=== PATIENT | male | born 1990 | race Caucasian/White ===

== ENCOUNTER 2020-03-17 08:47 | Emergency (ER) | payer OTHER, SELFPAY ==
[2020-03-17 09:55] VITALS: O2SAT 98
[2020-03-17 09:57] VITALS: BP 127/89; TEMP 98
--- NOTE | 2020-03-20 16:50 | EDPHYS ---
Physician Documentation [facility] Name: Bear Pollard Age: 29 yrs Sex: Male : 1990 Arrival Date: 03/17/2020 Time: 08:49 Bed 4 Private MD: ED Physician Marcelo Armstrong HPI: 03/17 09:02 This 29 yrs old Male presents to ER via Ambulatory with complaints of Dog jr8 Bite. 09:02 The patient was bitten on the right hand, by a dog, while approaching the animal, at [facility] home. Onset: The symptoms/episode began/occurred acutely, today. Animal information: The animal was reported to appear healthy. is unknown, The animal is known and can be quarantined, Animal control has been notified. Secondary to the bite the patient reports a laceration, that is deep, 1 cm(s), pain. Associated signs and symptoms: The patient has no apparent associated signs or symptoms. Severity of symptoms: At their worst the symptoms were moderate, in the emergency department the symptoms are unchanged. The patient has not experienced similar symptoms in the past. The patient has not recently seen a physician. Patient has older dog at home. Stated that he was trying to get him away from trash and dog reached out and bit his right hand . Historical: - Allergies: 09:01 No Known Allergies; ss - Immunization history:: Adult Immunizations up to date, Last tetanus immunization: up to date < 5 years ago. - Social history:: Smoking status: Patient denies any tobacco usage or history of. ROS: 09:02 Eyes: Negative for injury, pain, redness, and discharge, ENT: Negative for injury, jr8 pain, and discharge, Neck: Negative for injury, pain, and swelling, Cardiovascular: Negative for chest pain, palpitations, and edema, Respiratory: Negative for shortness of breath, cough, wheezing, and pleuritic chest pain, Abdomen/GI: Negative for abdominal pain, nausea, vomiting, diarrhea, and constipation, Back: Negative for injury and pain, Neuro: Negative for headache, weakness, numbness, tingling, and seizure. 09:02 MS/extremity: Positive for laceration, pain, of the palmar aspect right hand. Exam: 09:02 Constitutional: This is a well developed, well nourished patient who is awake, alert, jr8 and in no acute distress. Cardiovascular: Regular rate and rhythm with a normal S1 and S2. No gallops, murmurs, or rubs. Normal PMI, no JVD. No pulse deficits. Respiratory: Lungs have equal breath sounds bilaterally, clear to auscultation and percussion. No rales, rhonchi or wheezes noted. No increased work of breathing, no retractions or nasal flaring. MS/ Extremity: Pulses equal, no cyanosis. Neurovascular intact. Full, normal range of motion. Neuro: Awake and alert, GCS 15, oriented to person, place, time, and situation. Cranial nerves II-XII grossly intact. Motor strength 5/5 in all extremities. Sensory grossly intact. Cerebellar exam normal. Normal gait. 09:02 Skin: injury, laceration(s), the wound is approximately 1 cm(s), with a depth of 1 cm(s), of the palmar aspect right hand near 2nd metacarpal region , that can be described as no foreign body, linear, with mild bleeding. Vital Signs: 09:00 BP 139 / 96; Pulse 79; Resp 16; Temp 98.0(TE); Pulse Ox 98% on R/A; Pain 2/10; ss 09:43 BP 127 / 89; Pulse 75; Resp 16; Temp 98; Pulse Ox 98% ; bp MDM: 08:56 Patient medically screened. [facility] 09:02 Data reviewed: vital signs, nurses notes, and as a result, I will discharge patient. [facility] Data interpreted: Pulse oximetry: on room air is 98 %. Interpretation: normal. Counseling: I had a detailed discussion with the patient and/or guardian regarding: the historical points, exam findings, and any diagnostic results supporting the discharge/admit diagnosis, the need for outpatient follow up, a hand specialist, to return to the emergency department if symptoms worsen or persist or if there are any questions or concerns that arise at home. ED course: Detailed discussion with patient about why we are not going to close simple laceration and need for f/u with hand surgery along with taking antibiotics due to high risk of infection in this particular region. That if he were to have exudate, swelling, or erythema to region before getting into hand, that he would need to come back immediately for reevaluation. Patient good with this and will follow instructions. 09:08 ED course: Patient up to date on tetanus within 5 years per him . jr8 03/17 09:02 Order name: Wound Care; Complete Time: 09:14 jr8 Administered Medications: No medications were administered Disposition: 03/18 07:53 Co-signature as Attending Physician, Marcelo Armstrong MD I agree with the assessment and [facility] plan of care. Disposition: 03/17/20 09:37 Discharged to Home. Impression: Bitten by dog. - Condition is Stable. - Discharge Instructions: Puncture Wound, Animal Bite. - Prescriptions for Augmentin 875- 125 mg Oral Tablet - take 1 tablet by ORAL route every 12 hours for 10 days; 20 tablet. Ibuprofen 800 mg Oral Tablet - take 1 tablet by ORAL route every 12 hours As needed take with food; 20 tablet. - Medication Reconciliation Form, Thank You Letter, Antibiotic Education, Prescription Opioid Use form. - Follow up: Juan Watts MD; When: 2 - 3 days; Reason: Wound Recheck, Recheck today's complaints, Continuance of care, Re-evaluation by your physician. - Problem is new. - Symptoms have improved. Signatures: Marcelo Armstrong MD MD cha Smirch, Shelby, RN RN Homer Stearns PA PA jr8 Faustino Tamayo, RN RN bp Corrections: (The following items were deleted from the chart) 03/17 09:50 09:37 03/17/2020 09:37 Discharged to Home. Impression: Bitten by dog. Condition is bp Stable. Forms are Medication Reconciliation Form, Thank You Letter, Antibiotic Education, Prescription Opioid Use. Follow up: Juan Watts; When: 2 - 3 days; Reason: Wound Recheck, Recheck today's complaints, Continuance of care, Re-evaluation by your physician. Problem is new. Symptoms have improved. jr8
--- NOTE | 2020-03-20 16:50 | ER ---
Nurse's Notes [facility] Name: Bear Pollard Age: 29 yrs Sex: Male : 1990 Arrival Date: 03/17/2020 Time: 08:49 Bed 4 Private MD: Diagnosis: Bitten by dog Presentation: 03/17 09:00 Chief complaint: Patient states: puncture wound to R hand after getting bit by his dog ss last night. Serosanguinous drainage noted to wound. Coronavirus screen: Proceed with normal triage. Patient denies a cough. Patient denies shortness of breath or difficulty breathing. Patient denies measured and/or subjective temperature greater than 100.4F prior to today's visit. Patient denies travel on a cruise ship or to a country the [facility] currently lists as an affected area. Patient denies contact with known and/or suspected case of COVID-19. Ebola Screen: Patient denies exposure to infectious person. Patient denies travel to an Ebola-affected area in the 21 days before illness onset. Initial Sepsis Screen: Does the patient meet any 2 criteria? No. Patient's initial sepsis screen is negative. Does the patient have a suspected source of infection? No. Patient's initial sepsis screen is negative. Risk Assessment: Do you want to hurt yourself or someone else? Patient reports no desire to harm self or others. Onset of symptoms was March 16, 2020. 09:00 Method Of Arrival: Ambulatory ss 09:00 Acuity: CONCHIS 4 ss Triage Assessment: 09:00 Bite description: bite sustained to right hand by a dog, animal information: bp Appearance: appeared well, vaccination(s) is current. General: Appears in no apparent distress. comfortable, Behavior is calm, cooperative, appropriate for age. Pain: Complains of pain in right hand. EENT: No deficits noted. Neuro: No deficits noted. Cardiovascular: No deficits noted. Respiratory: No deficits noted. GI: No signs and/or symptoms were reported involving the gastrointestinal system. : No signs and/or symptoms were reported regarding the genitourinary system. Derm: No deficits noted. Musculoskeletal: No deficits noted. Injury Description: Bite sustained to right hand caused by a dog, was sustained 6-12 hours ago. Historical: - Allergies: 09:01 No Known Allergies; ss - Immunization history:: Adult Immunizations up to date, Last tetanus immunization: up to date < 5 years ago. - Social history:: Smoking status: Patient denies any tobacco usage or history of. Screenin:05 Abuse screen: Denies threats or abuse. Denies injuries from another. Nutritional bp screening: No deficits noted. Tuberculosis screening: No symptoms or risk factors identified. Fall Risk None identified. Assessment: 09:00 General: SEE TRIAGE NOTE. Derm: Skin is intact, is healthy with good turgor, Skin is bp pink, warm \T\ dry. 09:35 Reassessment: CONTACT WITH [employer] ANIMAL CONTROL. PER ASSOCIATE PROFESSOR OF MEDICINE, NO bp REPORT NEEDED, IT WAS PT'S OWN DOG. 09:43 Reassessment: PT D/C HOME AMBULATORY, DX WITH DOG BITE. bp Vital Signs: 09:00 BP 139 / 96; Pulse 79; Resp 16; Temp 98.0(TE); Pulse Ox 98% on R/A; Pain 2/10; ss 09:43 BP 127 / 89; Pulse 75; Resp 16; Temp 98; Pulse Ox 98% ; bp ED Course: 08:49 Patient arrived in ED. ag5 08:55 Faustino Tamayo, JAMEE is Primary Nurse. bp 08:56 Homer Stearns PA is PHCP. jr8 08:56 Marcelo Armstrong MD is Attending Physician. jr8 09:01 Triage completed. ss 09:01 Arm band placed on right wrist. ss 09:05 Patient has correct armband on for positive identification. Bed in low position. Call bp light in reach. Side rails up X2. 09:14 Wound care: to puncture located on right hand was cleaned with Betadine, irrigated with bp BETADINE. 09:37 Juan Watts MD is Referral Physician. jr8 09:43 No provider procedures requiring assistance completed. Patient did not have IV access bp during this emergency room visit. Administered Medications: No medications were administered Outcome: 09:37 Discharge ordered by . jr8 09:43 Discharged to home ambulatory. bp 09:43 Condition: stable 09:43 Discharge instructions given to patient, Instructed on discharge instructions, follow up and referral plans. medication usage, wound care, Demonstrated understanding of instructions, follow-up care, medications, wound care, Prescriptions given X 2. 09:50 Patient left the ED. bp Signatures: Selam Bueno RN RN ss Homer Stearns PA PA jr8 Faustino Tamayo, RN RN bp Simba Cohen ag5
== END 2020-03-17 09:50 | disposition home or self-care (01) ==
LOC: ER 08:47
DX: S61.411A Laceration without foreign body of right hand, initial encounter (principal); W54.0XXA Bitten by dog, initial encounter; Y93.89 Activity, other specified; Y92.9 Unspecified place or not applicable
CPT/HCPCS: 99283

== ENCOUNTER 2021-06-18 07:37 | Emergency (ER) | payer SELFPAY ==
[2021-06-18] MEDS ORDERED: MOXIFLOXACIN HCL 0.5% 3ML OPTH OPTH ONE (11:45)
[2021-06-18] MEDS ORDERED: TETRACAINE HCL 0.5% 4ML OPTH ONE (11:50)
[2021-06-18] MEDS ORDERED: FLUORESCEIN SODIUM 1 MG/WRAP ONE (11:50)
[2021-06-18] MEDS ORDERED: SMZ./TMP. 800/160 MG TABLET ONE ×2 (11:59→12:29)
--- NOTE | 2021-06-18 12:05 | ER ---
Nurse's Notes [facility] Name: Bear Pollard Age: 31 yrs Sex: Male : 1990 Arrival Date: 06/18/2021 Time: 07:41 Bed 10 Private MD: Diagnosis: Other mucopurulent conjunctivitis, right eye;Injury of conjunctiva and corneal abrasion without foreign body-contact removed, in ED Presentation: 06/18 07:52 Chief complaint: Right eye pain and swelling x 2 days. Contact is still in eye. hb Coronavirus screen: At this time, the client does not indicate any symptoms associated with coronavirus-19. Ebola Screen: No symptoms or risks identified at this time. Risk Assessment: Do you want to hurt yourself or someone else? Patient reports no desire to harm self or others. Onset of symptoms was June 17, 2021. 07:52 Method Of Arrival: Ambulatory hb 07:52 Acuity: CONCHIS 4 hb 12:19 Initial Sepsis Screen: Does the patient meet any 2 criteria? No. Patient's initial iw sepsis screen is negative. 12:20 Initial Sepsis Screen: Does the patient have a suspected source of infection? No. iw Patient's initial sepsis screen is negative. Triage Assessment: 09:22 General: Appears in no apparent distress. Pain: Denies pain. kh1 09:40 General: Behavior is calm. iw Historical: - Allergies: 07:53 No Known Allergies; hb - Family history:: not pertinent. Screenin:43 Abuse screen: Denies threats or abuse. Nutritional screening: No deficits noted. kh1 Tuberculosis screening: No symptoms or risk factors identified. Fall Risk None identified. Assessment: 09:41 General: Appears in no apparent distress. Pain: Complains of pain in right eye Pain kh1 does not radiate. Pain currently is 10 out of 10 on a pain scale. Aggravated by light touch. Vital Signs: 07:52 BP 175 / 84; Pulse 79; Resp 16; Temp 97.4; Pulse Ox 100% ; Weight 79.38 kg; Height 5 hb ft. 10 in. (177.80 cm); Pain 9/10; 09:40 BP 169 / 87; Pulse 84; Resp 20; Temp 98.3; Pulse Ox 100% ; kh1 07:52 Body Mass Index 25.11 (79.38 kg, 177.80 cm) ED Course: 07:41 Patient arrived in ED. as 07:53 Triage completed. 09:22 Shaista Steiner is Primary Nurse. 1 09:22 Arm band placed on left wrist. 1 09:45 Marcelo Armstrong MD is Attending Physician. [facility] 09:45 Patient has correct armband on for positive identification. iw 12:02 Wound Culture Sent. 1 12:03 Bryson Leyva MD is Referral Physician. [facility] 12:19 Assist provider with eye exam of right eye. using fluorescein stain, Performed by Marcelo Armstrong MD Patient tolerated well. Patient did not have IV access during this emergency room visit. Administered Medications: 11:30 Drug: Tetracaine Drops 0.5 % 1 drops Route: Ophthalmic; Site: right eye; 1 11:39 Drug: Bactrim (trimethoprim-sulfamethoxazole) (160 mg-800 mg (DS) 1 tablet Route: PO; iw 11:50 Follow up: Response: No adverse reaction 12:18 Drug: Vigamox (moxifloxacin) Drops 0.5 % 2 drops Route: Ophthalmic; Site: right eye; Outcome: 12:04 Discharge ordered by . [facility] 12:19 Discharged to home ambulatory. iw 12:19 Condition: good 12:19 Discharge instructions given to patient, Instructed on discharge instructions, follow up and referral plans. medication usage, Demonstrated understanding of instructions, follow-up care, medications, Prescriptions given X 2. 12:20 Discharged to 12:20 Discharge instructions given to instructed on need to be seen at Dr. Leyva's office at 1 pm 12:21 Patient left the ED. Signatures: Marcelo Armstrong MD MD cha Martinez, Amelia as Sia Wiley, RN RN Maddi Regalado, RN RN Shaista Steiner 1
--- NOTE | 2021-06-18 12:05 | EDPHYS ---
Physician Documentation [facility] Name: Bear Pollard Age: 31 yrs Sex: Male : 1990 Arrival Date: 06/18/2021 Time: 07:41 Bed 10 Private MD: ED Physician Marcelo Armstrong HPI: 06/18 11:57 This 31 yrs old Male presents to ER via Ambulatory with complaints of Eye [place]at Problem. 11:57 The patient sustained Unknown. to the right eye. Onset: The symptoms/episode [place] began/occurred 1 day(s) ago. Duration: the symptoms are continuous. Aggravated by blinking, closing eye, light, opening eye, pressure, rubbing. Associated signs and symptoms: Pertinent positives:. Patient wears soft contacts. Severity of symptoms: At their worst the symptoms were moderate in the emergency department the symptoms are unchanged. The patient has not experienced similar symptoms in the past. Historical: - Allergies: 07:53 No Known Allergies; hb - Family history:: not pertinent. ROS: 11:57 Constitutional: Negative for fever, chills, and weight loss, ENT: Negative for injury, [place] pain, and discharge, Neck: Negative for injury, pain, and swelling, Cardiovascular: Negative for chest pain, palpitations, and edema, Respiratory: Negative for shortness of breath, cough, wheezing, and pleuritic chest pain, Abdomen/GI: Negative for abdominal pain, nausea, vomiting, diarrhea, and constipation, Back: Negative for injury and pain, : Negative for injury, bleeding, discharge, and swelling, MS/Extremity: Negative for injury and deformity, Skin: Negative for injury, rash, and discoloration, Neuro: Negative for headache, weakness, numbness, tingling, and seizure, Psych: Negative for depression, anxiety, suicide ideation, homicidal ideation, and hallucinations, Allergy/Immunology: Negative for hives, rash, and allergies, Endocrine: Negative for neck swelling, polydipsia, polyuria, polyphagia, and marked weight changes, Hematologic/Lymphatic: Negative for swollen nodes, abnormal bleeding, and unusual bruising. 11:57 Eyes: Positive for blurry vision, foreign body sensation, matting, pain, redness, swelling, visual disturbance, of the outer aspect of conjuctiva of right eye, iris of right eye and inner aspect of conjuctiva of right eye. Exam: 11:57 Constitutional: This is a well developed, well nourished patient who is awake, alert, [place] and in no acute distress. Head/Face: Normocephalic, atraumatic. ENT: Nares patent. No nasal discharge, no septal abnormalities noted. Tympanic membranes are normal and external auditory canals are clear. Oropharynx with no redness, swelling, or masses, exudates, or evidence of obstruction, uvula midline. Mucous membranes moist. Neck: Trachea midline, no thyromegaly or masses palpated, and no cervical lymphadenopathy. Supple, full range of motion without nuchal rigidity, or vertebral point tenderness. No Meningismus. Chest/axilla: Normal chest wall appearance and motion. Nontender with no deformity. No lesions are appreciated. Cardiovascular: Regular rate and rhythm with a normal S1 and S2. No gallops, murmurs, or rubs. Normal PMI, no JVD. No pulse deficits. Respiratory: Lungs have equal breath sounds bilaterally, clear to auscultation and percussion. No rales, rhonchi or wheezes noted. No increased work of breathing, no retractions or nasal flaring. Abdomen/GI: Soft, non-tender, with normal bowel sounds. No distension or tympany. No guarding or rebound. No evidence of tenderness throughout. Back: No spinal tenderness. No costovertebral tenderness. Full range of motion. Male : Normal genitalia with no discharge or lesions. Skin: Warm, dry with normal turgor. Normal color with no rashes, no lesions, and no evidence of cellulitis. MS/ Extremity: Pulses equal, no cyanosis. Neurovascular intact. Full, normal range of motion. Neuro: Awake and alert, GCS 15, oriented to person, place, time, and situation. Cranial nerves II-XII grossly intact. Motor strength 5/5 in all extremities. Sensory grossly intact. Cerebellar exam normal. Normal gait. Psych: Awake, alert, with orientation to person, place and time. Behavior, mood, and affect are within normal limits. 11:57 Eyes: Pupils: equal, round, and reactive to light and accomodation, Extraocular movements: intact throughout, Conjunctiva: exudate, injected, in the right eye, Corneas: abrasion, that is large, a fluorescein strip employed to appreciate the findings, Sclera: injected, Anterior chamber: no acute changes, Lids and lashes: drainage, erythema, on the right. Vital Signs: 07:52 BP 175 / 84; Pulse 79; Resp 16; Temp 97.4; Pulse Ox 100% ; Weight 79.38 kg; Height 5 hb ft. 10 in. (177.80 cm); Pain 9/10; 09:40 BP 169 / 87; Pulse 84; Resp 20; Temp 98.3; Pulse Ox 100% ; kh1 07:52 Body Mass Index 25.11 (79.38 kg, 177.80 cm) hb MDM: 09:45 Patient medically screened. [place] 12:01 Differential diagnosis: Corneal abrasion of Infectious conjunctivitis in right eye. [place] Data reviewed: vital signs, nurses notes. Data interpreted: monitoring tech: rate is 84 beats/min, rhythm is regular, Pulse oximetry: on room air is 100 %. Test interpretation: by ED physician or midlevel provider:. Counseling: I had a detailed discussion with the patient and/or guardian regarding: the historical points, exam findings, and any diagnostic results supporting the discharge/admit diagnosis, the need for outpatient follow up, for definitive care, an opthalmologist. 06/18 11:33 Order name: Wound Culture iw 06/18 11:56 Order name: Ice pack; Complete Time: 12:02 [facility] 06/18 11:56 Order name: Eye Tray; Complete Time: 12:02 [facility] 06/18 11:56 Order name: Fluoresene Opth strip; Complete Time: 12:02 [facility] Administered Medications: 11:30 Drug: Tetracaine Drops 0.5 % 1 drops Route: Ophthalmic; Site: right eye; 1 11:39 Drug: Bactrim (trimethoprim-sulfamethoxazole) (160 mg-800 mg (DS) 1 tablet Route: PO; iw 11:50 Follow up: Response: No adverse reaction iw 12:18 Drug: Vigamox (moxifloxacin) Drops 0.5 % 2 drops Route: Ophthalmic; Site: right eye; iw Disposition Summary: 06/18/21 12:04 Discharge Ordered Location: Home [place] Problem: new [place] Symptoms: have improved [place] Condition: Stable [place] Diagnosis - Other mucopurulent conjunctivitis, right eye [place] - Injury of conjunctiva and corneal abrasion without foreign body - contact removed, [place] in ED Followup: [place] - With: Bryson Leyva MD - When: Upon discharge from the Emergency Department - Reason: Recheck today's complaints, Re-evaluation by your physician Discharge Instructions: - Discharge Summary Sheet [place] - Corneal Abrasion [place] - Bacterial Conjunctivitis, Adult [place] - Corneal Abrasion, [id number] [place] - Bacterial Conjunctivitis, Adult, [id number] [place] Forms: - Medication Reconciliation Form [place] - Thank You Letter [place] - Antibiotic Education [place] - Prescription Opioid Use [facility] Prescriptions: - Vigamox 0.5 % Ophthalmic Drops - instill 1 drop by OPHTHALMIC route every 8 hours for 7 days; 5 milliliter; [facility] Refills: 0, Product Selection Permitted - Bactrim DS 800-160 mg Oral Tablet - take 1 tablet by ORAL route every 12 hours for 10 days; 20 tablet; Refills: 0, [facility] Product Selection Permitted Signatures: Dispatcher [employer] Marcelo Neal MD MD cha Williams, Irene, RN RN iw Baxter, Heather, RN RN hb Harris, Kecia [facility]
--- NOTE | 2021-06-18 16:55 | P.HP ---
Certification for Inpatient With expected LOS: >2 Midnights Patient will require the following post-hospital care: None Practitioner: I am a practitioner with admitting privileges, knowledge of patient current condition, hospital course, and medical plan of care. Services: Services provided to patient in accordance with Admission requirements found in Title 42 Section 412.3 of the Code of Federal Regulations <Adry Ng - Last Filed: 06/18/21 16:50> Patient admitted to: Inpatient With expected LOS: >2 Midnights <Mukul Gutierrez - Last Filed: 06/18/21 17:39> Patient History Date of Service: 06/18/21 Reason for admission: gonococcal conjunctivitis History of Present Illness: This is a 31 y/o M who presents today with pain in the right eye. Started yesterday with a foreign body sensation. Pain worsened today so came into ER. States this has happened in the past but never to this extent. He is a contact lens wearer and does not regularly take contacts out. He c/o light sensitivity, fever, chills. Denies any nausea, vomiting. - Past Medical/Surgical History Past Medical History: Patient denies medical history Past Surgical History: Patient denies surgical history - Family History Father -: Cancer (prostate) Mother -: Cancer - Social History Smoking Status: Current every day smoker Alcohol use: Yes CD- Drugs: Yes Caffeine use: Yes <Adry Ng - Last Filed: 06/18/21 16:50> Date of Service: 06/18/21 Primary Care Provider: None - Past Medical/Surgical History Psychosocial/ Personal History: Lives at home - Family History Family History: Reviewed- Non-Contributory - Social History Place of Residence: Home <Mukul Gutierrez - Last Filed: 06/18/21 17:39> Review of Systems 10-point ROS is otherwise unremarkable <Adry Ng - Last Filed: 06/18/21 16:50> Physical Examination - Vital Signs Temperature: 98.3 F Blood Pressure: 169/87 Pulse: 84 Respirations: 20 - Physical Exam General: Alert, Oriented x3, Cooperative HEENT: Other (right lid with edema, difficulty opening eye, purulent drainage) Neck: Supple Respiratory: Clear to auscultation bilaterally, Normal air movement Cardiovascular: Normal pulses, Regular rate/rhythm, Normal S1 S2 Gastrointestinal: Normal bowel sounds, Soft and benign Musculoskeletal: No clubbing, No contractures Integumentary: No rashes, No breakdown, No cyanosis Neurological: Normal speech, Normal tone, Normal affect Lymphatics: No axilla or inguinal lymphadenopathy - Studies Microbiology Data (last 24 hrs): 06/18/21 11:30 Wound - Right Eye Gram Stain - Final <Adry Ng - Last Filed: 06/18/21 16:50> - Studies Microbiology Data (last 24 hrs): 06/18/21 11:30 Wound - Right Eye Gram Stain - Final <Mukul Gutierrez - Last Filed: 06/18/21 17:39> Assessment and Plan - Plan impression: conjunctivitis of the right eye, presumed gonococcal infection elevated blood pressure plan: Will admit for further evaluation and management Cultures pending Start IV antibiotics Saline irrigation of eye QID Vigamox eye drops Q1H around the clock Oral azithromycin Consult ophthalmology and ID Continue to monitor BP Discharge Plan: Home Plan to discharge in: Greater than 2 days - Advance Directives Does patient have a Living Will: No Does patient have a Durable POA for Healthcare: No - Code Status/Comfort Care Code Status Assessed: Yes (full) <Adry Ng - Last Filed: 06/18/21 16:50> - Plan Case reviewed in detail with physician assistant producer. Agree with plan of care. Patient seen and evaluated. Will provide medication for pain. Right eye conjunctivitis presumed gonococcal infection Elevated blood pressure Case discussed with ophthalmology. Continue with saline irrigation of eye. Continue with IV antibiotic therapy. Infectious disease consulted. Await furth er recommendations. Time Spent Managing Pts Care (In Minutes): 55 <Mukul Gutierrez - Last Filed: 06/18/21 17:39>
[2021-06-18] MEDS ORDERED: TRAMADOL HCL 50 MG TAB PO PRN (17:59)
[2021-06-18] MEDS ORDERED: MORPHINE 2 MG/ML SYR IV PRN (17:59)
[2021-06-18] MEDS ORDERED: HYDROCODONE/APAP 7.5/325 MG TAB PO PRN (17:59)
[2021-06-18] MEDS ORDERED: ACETAMINOPHEN 500 MG TAB PO PRN (17:59)
[2021-06-18] MEDS ORDERED: AZITHROMYCIN 250 MG TAB PO ONE (17:59)
[2021-06-18] MEDS: MOXIFLOXACIN HCL 0.5% 3ML OPTH OPTH SCH ×6 (17:59→22:39)
[2021-06-18] MEDS ORDERED: HYDROCODONE/APAP 7.5/325 MG TAB ONE (19:49)
[2021-06-18] MEDS ORDERED: CEFTRIAXONE/SWI 1gm 1 GM/10 ML SYR IV SCH (21:00)
[2021-06-18 21:28] VITALS: O2SAT 97
[2021-06-18] MEDS ORDERED: CEFTRIAXONE/SWI 1gm 1 GM/10 ML SYR ONE (22:33)
[2021-06-18] MEDS ORDERED: MORPHINE 2 MG/ML SYR ONE (22:33)
[2021-06-18 22:36] VITALS: BMI 25.6
[2021-06-18 22:39] VITALS: BP 129/82; TEMP 98.5
== END 2021-06-18 12:21 | disposition home or self-care (01) ==
LOC: ER 07:37 → UNDOADMIN 16:29 → ERHOLD 16:29
DX: H10.021 Other mucopurulent conjunctivitis, right eye (principal); S05.01XA Injury of conjunctiva and corneal abrasion without foreign body, right eye, initial encounter; F17.210 Nicotine dependence, cigarettes, uncomplicated; Z80.42 Family history of malignant neoplasm of prostate
CPT/HCPCS: 87070; 87077; 87186; 87205; 99284; J0696; J2270

== ENCOUNTER 2021-06-18 14:31 | Inpatient (IN) | payer SELFPAY ==
--- NOTE | 2021-06-18 15:30 | ER ---
Nurse's Notes [facility] Name: Bear Pollard Age: 31 yrs Sex: Male : 1990 Arrival Date: 06/18/2021 Time: 14:35 Bed 11 Private MD: Diagnosis: Other mucopurulent conjunctivitis, right eye;Injury of conjunctiva and corneal abrasion without foreign body-right eye , contact removed;Ocular pain, right eye Presentation: 06/18 15:21 Chief complaint: Sent by Dr. Leyva for poss gonococcal infection of right eye. iw Coronavirus screen: At this time, the client does not indicate any symptoms associated with coronavirus-19. Ebola Screen: No symptoms or risks identified at this time. Initial Sepsis Screen: Does the patient meet any 2 criteria? No. Patient's initial sepsis screen is negative. Does the patient have a suspected source of infection? No. Patient's initial sepsis screen is negative. Risk Assessment: Do you want to hurt yourself or someone else? Patient reports no desire to harm self or others. Onset of symptoms was June 17, 2021. 15:21 Method Of Arrival: Ambulatory iw 15:21 Acuity: CONCHIS 3 Triage Assessment: 15:41 General: Appears in no apparent distress. Pain: Complains of pain in right eye Pain [facility] does not radiate. Aggravated by light and touch. 17:10 General: Behavior is. General: Appears Behavior is calm, cooperative, appropriate for [facility] age. Historical: - Allergies: 15:22 No Known Allergies; iw - Immunization history:: Adult Immunizations up to date. - Family history:: not pertinent. - Social history:: Smoking status: Patient reports the use of cigarette tobacco products, denies chronic smoking, but will smoke occasionally. Screenin:08 Abuse screen: Denies threats or abuse. Nutritional screening: No deficits noted. [facility] Tuberculosis screening: No symptoms or risk factors identified. Fall Risk IV access (20 points). Assessment: 15:42 Reassessment: Patient appears in no apparent distress at this time. No changes from [facility] previously documented assessment. Patient and/or family updated on plan of care and expected duration. Pain level reassessed. Patient is alert, oriented x 3, equal unlabored respirations, skin warm/dry/pink. General: Appears in no apparent distress. comfortable. Vital Signs: 17:09 BP 126 / 78; Pulse 68; Resp 20; Temp 98.2; Pulse Ox 100% on R/A; 1 ED Course: 14:35 Patient arrived in ED. as 15:19 Marcelo Armstrong MD is Attending Physician. [facility] 15:22 Triage completed. iw 15:28 Mukul Gutierrez DO is Hospitalizing Provider. [facility] 15:41 Shaista Steiner is Primary Nurse. 1 15:42 Arm band placed on right wrist. 1 16:22 Comprehensive Metabolic Panel Sent. kh1 17:08 Patient has correct armband on for positive identification. 1 17:08 Inserted saline lock: 20 gauge in right hand, using aseptic technique. 1 17:08 No provider procedures requiring assistance completed. 1 18:59 GC (GONORR/CHLAMYDIA) Probe: right eye drainage Sent. 1 18:59 Comprehensive Metabolic Panel Sent. 1 18:59 CBC with Diff Sent. 1 23:58 Patient admitted, IV remains in place. em Administered Medications: 16:15 Drug: NS 0.9% 1000 ml Route: IV; Rate: 1 bolus; Site: right antecubital; [facility] 22:06 Follow up: IV Status: Completed infusion; IV Intake: 1000ml em 16:15 Drug: Zithromax (azithromycin) 1 grams Route: PO; [facility] 22:07 Follow up: Response: No adverse reaction em 16:15 Drug: morphine 4 mg Route: IVP; Site: right antecubital; [facility] 22:07 Follow up: Response: No adverse reaction em 16:15 Drug: Zofran (Ondansetron) 4 mg Route: IVP; Site: right antecubital; [facility] 22:07 Follow up: Response: No adverse reaction em 16:21 Drug: Rocephin (cefTRIAXone) 2 grams Route: IV; Rate: per protocol; Site: right [facility] antecubital; 22:07 Follow up: Response: No adverse reaction; IV Status: Completed infusion; IV Intake: 10mlem 06/19 00:47 CANCELLED (went upstairss): [place] (HYDROcodone-acetaminophen) (7.5 mg-325 mg) 1 tabs PO em once; RASS on ADMIN: Combtv4, Very Agttd3, Agttd2, Rstlss1, AlertClm0, Drwsy-1, Lt Sdtn-2, Mod Sdtn-3, Dp Sdtn-4, UnArsble-5 Intake: 06/18 22:06 IV: 1000ml; Total: 1000ml. em 22:07 IV: 10ml; Total: 1010ml. em Outcome: 15:30 Decision to Hospitalize by Provider. [place] 17:08 Discharged to home ambulatory. [facility] 17:08 Condition: good 17:08 Discharge instructions given to patient. 06/19 00:47 Patient left the ED. em Signatures: Marcelo Armstrong MD MD cha Munoz, Edgar, RN RN Susana Abrams Irene, RN RN iw Harris, Kecia [facility]
--- NOTE | 2021-06-18 15:30 | EDPHYS ---
Physician Documentation [facility] Name: Bear Pollard Age: 31 yrs Sex: Male : 1990 Arrival Date: 06/18/2021 Time: 14:35 Bed 11 Private MD: ED Physician Marcelo Armstrong HPI: 06/18 15:24 This 31 yrs old Male presents to ER via Ambulatory with complaints of Eye [place] Problem - gonococcal conjuctivitis. 15:24 The patient is experiencing pain, redness, tearing, The patient sustained Unknown. to [place] the right eye. Onset: The symptoms/episode began/occurred 1 day(s) ago. Duration: the symptoms are continuous. Aggravated by blinking, closing eye, opening eye, pressure, rubbing, Alleviated by cold application, covering eye. Associated signs and symptoms:. Patient wears soft contacts. Severity of symptoms: At their worst the symptoms were moderate in the emergency department the symptoms are unchanged. The patient has not experienced similar symptoms in the past. Historical: - Allergies: 15:22 No Known Allergies; iw - Immunization history:: Adult Immunizations up to date. - Family history:: not pertinent. - Social history:: Smoking status: Patient reports the use of cigarette tobacco products, denies chronic smoking, but will smoke occasionally. ROS: 15:24 Constitutional: Negative for fever, chills, and weight loss, ENT: Negative for injury, [place] pain, and discharge, Neck: Negative for injury, pain, and swelling, Cardiovascular: Negative for chest pain, palpitations, and edema, Respiratory: Negative for shortness of breath, cough, wheezing, and pleuritic chest pain, Abdomen/GI: Negative for abdominal pain, nausea, vomiting, diarrhea, and constipation, Back: Negative for injury and pain, : Negative for injury, bleeding, discharge, and swelling, MS/Extremity: Negative for injury and deformity, Skin: Negative for injury, rash, and discoloration, Neuro: Negative for headache, weakness, numbness, tingling, and seizure, Psych: Negative for depression, anxiety, suicide ideation, homicidal ideation, and hallucinations, Allergy/Immunology: Negative for hives, rash, and allergies, Endocrine: Negative for neck swelling, polydipsia, polyuria, polyphagia, and marked weight changes, Hematologic/Lymphatic: Negative for swollen nodes, abnormal bleeding, and unusual bruising. 15:24 Eyes: Positive for blurry vision, discharge, pain, redness, swelling, tearing, of the right eyebrow, right upper eyelid, right outer canthus, outer aspect of conjuctiva of right eye, iris of right eye, inner aspect of conjuctiva of right eye and right inner canthus. Exam: 15:24 Visual Acuity: I have reviewed the nursing documentation. [facility] 15:24 Head/Face: Normocephalic, atraumatic. ENT: Nares patent. No nasal discharge, no septal abnormalities noted. Tympanic membranes are normal and external auditory canals are clear. Oropharynx with no redness, swelling, or masses, exudates, or evidence of obstruction, uvula midline. Mucous membranes moist. Neck: Trachea midline, no thyromegaly or masses palpated, and no cervical lymphadenopathy. Supple, full range of motion without nuchal rigidity, or vertebral point tenderness. No Meningismus. Chest/axilla: Normal chest wall appearance and motion. Nontender with no deformity. No lesions are appreciated. Cardiovascular: Regular rate and rhythm with a normal S1 and S2. No gallops, murmurs, or rubs. Normal PMI, no JVD. No pulse deficits. Respiratory: Lungs have equal breath sounds bilaterally, clear to auscultation and percussion. No rales, rhonchi or wheezes noted. No increased work of breathing, no retractions or nasal flaring. Abdomen/GI: Soft, non-tender, with normal bowel sounds. No distension or tympany. No guarding or rebound. No evidence of tenderness throughout. Back: No spinal tenderness. No costovertebral tenderness. Full range of motion. Male : Normal genitalia with no discharge or lesions. Skin: Warm, dry with normal turgor. Normal color with no rashes, no lesions, and no evidence of cellulitis. MS/ Extremity: Pulses equal, no cyanosis. Neurovascular intact. Full, normal range of motion. Neuro: Awake and alert, GCS 15, oriented to person, place, time, and situation. Cranial nerves II-XII grossly intact. Motor strength 5/5 in all extremities. Sensory grossly intact. Cerebellar exam normal. Normal gait. Psych: Awake, alert, with orientation to person, place and time. Behavior, mood, and affect are within normal limits. 15:24 Eyes: Pupils: equal, round, and reactive to light and accomodation, Extraocular movements: intact throughout, Conjunctiva: exudate, in the right eye, injected, in the right eye, Corneas: abrasion, that is moderate sized, foreign body, contact removed eariler, 1st visit. Vital Signs: 17:09 BP 126 / 78; Pulse 68; Resp 20; Temp 98.2; Pulse Ox 100% on R/A; 1 MDM: 15:19 Patient medically screened. [facility] 15:28 Differential diagnosis: Corneal abrasion of Corneal ulcer of right eye. Data reviewed: [facility] vital signs, nurses notes, lab test result(s), CBC, electrolytes. Data interpreted: athletic monitor: rate is 75 beats/min, rhythm is regular. Counseling: I had a detailed discussion with the patient and/or guardian regarding: the historical points, exam findings, and any diagnostic results supporting the discharge/admit diagnosis, lab results, radiology results, the need for further work-up and treatment in the hospital. 06/18 15:24 Order name: CBC with Diff [facility] 06/18 15:24 Order name: Comprehensive Metabolic Panel [facility] 06/18 15:36 Order name: GC (GONORR/CHLAMYDIA) Probe: right eye drainage [facility] 06/18 22:14 Order name: SARS-COV-2 RT PCR [facility] 06/18 15:24 Order name: Misc. Order: irrigate right eye; Complete Time: 18:59 [facility] Administered Medications: 16:15 Drug: NS 0.9% 1000 ml Route: IV; Rate: 1 bolus; Site: right antecubital; [facility] 22:06 Follow up: IV Status: Completed infusion; IV Intake: 1000ml em 16:15 Drug: Zithromax (azithromycin) 1 grams Route: PO; 1 22:07 Follow up: Response: No adverse reaction em 16:15 Drug: morphine 4 mg Route: IVP; Site: right antecubital; 1 22:07 Follow up: Response: No adverse reaction em 16:15 Drug: Zofran (Ondansetron) 4 mg Route: IVP; Site: right antecubital; 1 22:07 Follow up: Response: No adverse reaction em 16:21 Drug: Rocephin (cefTRIAXone) 2 grams Route: IV; Rate: per protocol; Site: right [facility] antecubital; 22:07 Follow up: Response: No adverse reaction; IV Status: Completed infusion; IV Intake: 10mlem 06/19 00:47 CANCELLED (went upstairss): [place] (HYDROcodone-acetaminophen) (7.5 mg-325 mg) 1 tabs PO em once; RASS on ADMIN: Combtv4, Very Agttd3, Agttd2, Rstlss1, AlertClm0, Drwsy-1, Lt Sdtn-2, Mod Sdtn-3, Dp Sdtn-4, UnArsble-5 Disposition Summary: 06/18/21 15:30 Hospitalization Ordered Hospitalization Status: Inpatient Admission [place] Provider: Mukul Gutierrez cha Location: Telemetry/MedSurg (Inpatient) [place] Condition: Stable [place] Problem: new [place] Symptoms: have improved [place] Bed/Room Type: Standard [facility] Room Assignment: 218(06/18/21 23:14) la1 Diagnosis - Other mucopurulent conjunctivitis, right eye [place] - Injury of conjunctiva and corneal abrasion without foreign body - right eye , [place] contact removed - Ocular pain, right eye [place] Forms: - Medication Reconciliation Form [place] - SBAR form [place] Signatures: Dispatcher [employer] EDMarcelo Pena MD MD cha Williams, Irene, RN RN Red Joshi, PROJECT ARCHIVIST-C PROJECT ARCHIVIST-Shaista Clay Ferny Mendes RN em Corrections: (The following items were deleted from the chart) 06/18 21:16 20:42 CORONAVIRUS+LAB.BRZ ordered. [facility] EDMS 23:14 15:30 [place] la1 06/19 00:47 00:39 [place] (HYDROcodone-acetaminophen) (7.5 mg-325 mg) 1 tabs PO once; RASS on ADMIN: em Combtv4, Very Agttd3, Agttd2, Rstlss1, AlertClm0, Drwsy-1, Lt Sdtn-2, Mod Sdtn-3, Dp Sdtn-4, UnArsble-5 ordered. la1
[2021-06-18] MEDS ORDERED: ONDANSETRON 4 MG/2 ML VIAL ONE (16:19)
[2021-06-18] MEDS ORDERED: MORPHINE 4 MG/ML SYR ONE (16:19)
[2021-06-18] MEDS ORDERED: AZITHROMYCIN 250 MG TAB ONE (16:20)
[2021-06-18] MEDS ORDERED: CEFTRIAXONE 1000 MG/VIAL ONE (16:21)
[2021-06-18] MEDS ORDERED: NA CHLORIDE 0.9% 1,000 ML ONE ×2 (16:22→17:05)
[2021-06-18] MEDS ORDERED: WATER FOR INJ,STERILE 20 ML ONE (16:51)
[2021-06-18 19:29] LABS: ALT/SGPT 18 U/L (12-78); AST/SGOT 15 U/L (15-37); Albumin 4.1 g/dL (3.4-5.0); Alkaline Phosphatase 64 U/L (45-117); BUN Blood Urea Nitrogen 9 mg/dL (7-18); Bicarbonate 24 mmol/L (21-32); Bilirubin Total 0.5 mg/dL (0.2-1.0); Glucose Level 97 mg/dL (74-106); Potassium 3.6 mmol/L (3.5-5.1); Protein, Total 7.2 g/dL (6.4-8.2); Sodium Level 141 mmol/L (136-145)
[2021-06-18 20:23] LABS: Absolute Lymphocytes (CBC) 1.6 K/uL (0.7-4.9); Basophils % 0.4 % (0-1.3); Hematocrit 47.5 % (39.6-49.0); Lymphocytes % 11.5 % (15.3-44.8); MPV 8.8 fL (7.6-11.3); RBC Red Blood Cell Count 5.42 M/uL (4.33-5.43)
[2021-06-18] MEDS ORDERED: MORPHINE 2 MG/ML SYR ONE (22:36)
--- NOTE | 2021-06-18 23:41 | P.HP ---
Certification for Inpatient Patient admitted to: Inpatient With expected LOS: >2 Midnights Patient will require the following post-hospital care: None Practitioner: I am a practitioner with admitting privileges, knowledge of patient current condition, hospital course, and medical plan of care. Services: Services provided to patient in accordance with Admission requirements found in Title 42 Section 412.3 of the Code of Federal Regulations Patient History Date of Service: 06/18/21 Reason for admission: Gonococcal conjunctivitis History of Present Illness: This is a 31 y/o M who presents today with pain in the right eye. Started yesterday with a foreign body sensation. Pain worsened today so came into ER. States this has happened in the past but never to this extent. He is a contact lens wearer and does not regularly take contacts out. He c/o light sensitivity, fever, chills. Denies any nausea, vomiting. Allergies No Known Allergies Allergy (Unverified 06/18/21 17:59) - Past Medical/Surgical History -: None -: None - Family History Father -: Cancer Mother -: Cancer - Social History Smoking Status: Current every day smoker Counseled patient to stop smoking for: less than 10 minutes Smoking therapy provided: No Alcohol use: Yes CD- Drugs: Yes Caffeine use: Yes Place of Residence: Home Review of Systems 10-point ROS is otherwise unremarkable Eyes: As per HPI Physical Examination - Physical Exam General: Alert, In no apparent distress, Oriented x3 HEENT: Atraumatic, PERRLA, Mucous membr. moist/pink, Other (Right eyelid with edema, purulent drainage, difficulty opening) Neck: Supple, 2+ carotid pulse no bruit, No LAD Respiratory: Clear to auscultation bilaterally, Normal air movement Cardiovascular: Regular rate/rhythm, Normal S1 S2 Gastrointestinal: Normal bowel sounds, No tenderness Musculoskeletal: No tenderness Integumentary: No rashes Neurological: Normal gait, Normal speech, Normal strength at 5/5 x4 extr, Normal tone, Normal affect Lymphatics: No axilla or inguinal lymphadenopathy - Studies Laboratory Data (last 24 hrs) 06/18/21 18:45: Sodium 141, Potassium 3.6, BUN 9, Creatinine 0.96, Glucose 97, Total Bilirubin 0.5, AST 15, ALT 18, Alkaline Phosphatase 64 06/18/21 18:45: WBC 13.80 H, Hgb 16.2, Hct 47.5, Plt Count 238 Assessment and Plan - Plan impression: conjunctivitis of the right eye, presumed gonococcal infection elevated blood pressure plan: Will admit for further evaluation and management Cultures pending Start IV antibiotics Saline irrigation of eye QID Vigamox eye drops Q1H around the clock Oral azithromycin Consult ophthalmology and ID Continue to monitor BP Discharge Plan: Home Plan to discharge in: Greater than 2 days - Advance Directives Does patient have a Living Will: No Does patient have a Durable POA for Healthcare: No - Code Status/Comfort Care Code Status Assessed: Yes (full) <Adry Ng - Last Filed: 06/18/21 16:50> - Plan Case reviewed in detail with physician instructional assistant. Agree with plan of care. Patient seen and evaluated. Will provide medication for pain. Right eye conjunctivitis presumed gonococcal infection Elevated blood pressure Case discussed with ophthalmology. Continue with saline irrigation of eye. Continue with IV antibiotic therapy. Infectious disease consulted. Await further recommendations. Time Spent Managing Pts Care (In Minutes): 55 Discharge Plan: Home Plan to discharge in: Greater than 2 days - Advance Directives Does patient have a Living Will: No Does patient have a Durable POA for Healthcare: No - Code Status/Comfort Care Code Status Assessed: Yes (FC) Critical Care: No Time Spent Managing Pts Care (In Minutes): 55
[2021-06-19] MEDS ORDERED: TRAMADOL HCL 50 MG TAB PO PRN (00:18)
[2021-06-19] MEDS: MOXIFLOXACIN HCL 0.5% 3ML OPTH OPTH SCH ×24 (00:18→23:26)
[2021-06-19] MEDS ORDERED: ONDANSETRON 4 MG/2 ML VIAL IV PRN (00:18)
[2021-06-19] MEDS ORDERED: AZITHROMYCIN 250 MG TAB PO ONE (00:18)
[2021-06-19 00:51] VITALS: O2SAT 100
[2021-06-19 02:19] VITALS: BMI 25.1
[2021-06-19] MEDS: MORPHINE 2 MG/ML SYR IV PRN ×3 (02:26→20:43)
[2021-06-19 04:29] LABS: Absolute Lymphocytes (CBC) 1.4 K/uL (0.7-4.9); Basophils % 0.4 % (0-1.3); Hematocrit 47.9 % (39.6-49.0); MPV 8.6 fL (7.6-11.3); RBC Red Blood Cell Count 5.44 M/uL (4.33-5.43)
[2021-06-19 04:46] LABS: Albumin 3.9 g/dL (3.4-5.0); Bilirubin Total 0.6 mg/dL (0.2-1.0); Potassium 3.8 mmol/L (3.5-5.1); Protein, Total 7.2 g/dL (6.4-8.2)
[2021-06-19 05:07] LABS: Urine Appearance CLEAR (Clear); Urine Bilirubin NEGATIVE (Negative); Urine Blood NEGATIVE (Negative); Urine Color YELLOW (Yellow); Urine Glucose NEGATIVE (Negative); Urine Protein NEGATIVE (Negative); Urine Urobilinogen 0.2 mg/dL (0.2-1.0); Urine pH 6.5 (5.0-7.0)
[2021-06-19 05:08] LABS: Urine Microscopic Reflex NO UMIC
--- NOTE | 2021-06-19 06:31 | P.PN ---
Subjective Date of Service: 06/19/21 Chief Complaint: Gonococcal conjunctivitis Subjective: Other (Pain controlled) Physical Examination - Vital Signs Temperature: 98.6 F Blood Pressure: 115/63 Pulse: 55 Respirations: 18 Pulse Ox (%): 94 - Studies Laboratory Data (last 24 hrs) 06/18/21 18:45: Sodium 141, Potassium 3.6, BUN 9, Creatinine 0.96, Glucose 97, Total Bilirubin 0.5, AST 15, ALT 18, Alkaline Phosphatase 64 06/18/21 18:45: WBC 13.80 H, Hgb 16.2, Hct 47.5, Plt Count 238 Assessment & Plan Discharge Plan: Home Plan to discharge in: Greater than 2 days Physician Review Additional Text: COVID: Negative Physical exam: General: Alert, In no apparent distress, Oriented x3 HEENT: Right eyelid edema. Drainage noted Neck: Supple, 2+ carotid pulse no bruit, No LAD Respiratory: Clear to auscultation bilaterally, Normal air movement Cardiovascular: Regular rate/rhythm, Normal S1 S2 Gastrointestinal: Normal bowel sounds, No tenderness Musculoskeletal: No tenderness Integumentary: No rashes Neurological: Normal gait, Normal speech, Normal strength at 5/5 x4 extr, Normal tone, Normal affect Lymphatics: No axilla or inguinal lymphadenopathy Impression: Conjunctivitis of the right eye, presumed gonococcal infection Elevated blood pressure Plan: Continue with recommendations by ophthalmology. Care discussed with ophthalmology in detail. Ophthalmology plans to reassess patient today. Further irrigation to be done by ophthalmology. Infectious disease recommended changes to antibiotics. Currently on IV antibiotic therapy Rocephin and oral doxycycline. Continue with their recommendations. Await culture results. Continue with eyedrops. Await further recommendations from ophthalmology. Blood pressure remained stable CODE STATUS: Full code DVT prophylaxis: Lovenox Advance care planning: Home at discharge Time Spent Managing Pts Care (In Minutes): 55
[2021-06-19] MEDS ORDERED: CEFTRIAXONE 1 GM/NS 50 ML 1 GM/50 ML BAG IV SCH (09:00)
--- NOTE | 2021-06-19 11:23 | P.CNS ---
Date of Consult: 06/19/21 Chief Complaint: Gonococcal conjunctivitis History of Present Illness: Patient is a 31-year-old male with no significant past medical history who presented to the emergency department following an ophthalmology appointment due to increased pain/swelling/discharge in his right eye. Patient states that the symptoms started on Friday planned Fallot formed body present in his on a. Patient states that similar symptoms happened in the past but never to this extent, and past patient had a corneal scratch. 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 Patient also states he has light sensitivity, fever and chills on admission. Patient currently afebrile, no leukocytosis. Patient currently denies nausea, vomiting, diarrhea, shortness breath, chest pain. Patient reports significant tenderness to right eye, decreased vision, light sensitivity, and purulent drainage. Allergies No Known Allergies Allergy (Unverified 06/18/21 17:59) - Past Medical/Surgical History -: None -: None - Family History Father Medical History: Cancer Mother Medical History: Cancer - Social History Smoking Status: Current some day smoker Alcohol use: Yes CD- Drugs: No Caffeine use: Yes Place of Residence: Home Review of Systems 10-point ROS is otherwise unremarkable Physical Examination Temp Pulse Resp BP Pulse Ox 99.3 F 54 18 137/70 97 06/19/21 08:00 06/19/21 08:00 06/19/21 08:00 06/19/21 08:00 06/19/21 08:00 General: Alert, In no apparent distress, Oriented x3 HEENT: Other (Normal on exam and left behind, unable to perform I examined right benign due to severe pain, light sensitivity, and extreme swelling. Patient has purulent drainage from right time with conjunctival erythema) Neck: Supple, 2+ carotid pulse no bruit Respiratory: Clear to auscultation bilaterally, Normal air movement Cardiovascular: No edema, Normal pulses Capillary refill: <2 Seconds Gastrointestinal: Normal bowel sounds, Soft and benign Musculoskeletal: No clubbing, No swelling Integumentary: No rashes, No breakdown, No significant lesion Laboratory Data (last 24 hrs) 06/18/21 18:45: Sodium 141, Potassium 3.6, BUN 9, Creatinine 0.96, Glucose 97, Total Bilirubin 0.5, AST 15, ALT 18, Alkaline Phosphatase 64 06/18/21 18:45: WBC 13.80 H, Hgb 16.2, Hct 47.5, Plt Count 238 Conclusions/Impression: Antibiotics: Rocephin Start: 06/19 Stop:-- Doxycycline Start: 06/19 stop: -- Assessment/Plan Possible gonococcal conjunctivitis Gonorrhea, chlamydia, syphilis labs pending. 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 Patient started on Rocephin and doxycycline. Continue moxifloxacin eyedrops 1-2 drops TID. 11 0 patient is also contact L1 aware can't states he does not change his contacts out regularly. As such need pseudomonal coverage as well. Patient received saline flush and states his symptoms have not improved. Remains afebrile, no leukocytosis. Patient denies in terms of urethritis,. Urethral discharge, or urinary frequency. Patient states he has 1 sexual partner and has no concern for STD infections at this time. Medical management per primary team Plan of care discussed Dr. Viera Thank you for consultation.
[2021-06-19] MEDS: ENOXAPARIN 40 MG/0.4 ML SQ SCH (12:00)
[2021-06-19] MEDS: HYDROCODONE/APAP 7.5/325 MG TAB PO PRN (15:53)
[2021-06-19] MEDS ORDERED: GENTAMICIN OPTH SCH (17:00)
[2021-06-19] MEDS: DOXYCYCLINE 100 MG CAP PO SCH (20:43)
[2021-06-19] MEDS ORDERED: CEFTRIAXONE/SWI 1gm 1 GM/10 ML SYR IV SCH (21:00)
[2021-06-20] MEDS: MOXIFLOXACIN HCL 0.5% 3ML OPTH OPTH SCH ×14 (00:29→13:18)
[2021-06-20 02:00] LABS: RPR (Rapid Plasma Reagin) NON-REACT (NON-REACT)
[2021-06-20 06:12] LABS: Absolute Lymphocytes (CBC) 1.7 K/uL (0.7-4.9); Hematocrit 49.4 % (39.6-49.0); Lymphocytes % 19.7 % (15.3-44.8); MPV 8.8 fL (7.6-11.3); RBC Red Blood Cell Count 5.66 M/uL (4.33-5.43)
[2021-06-20 06:16] LABS: Albumin 4.1 g/dL (3.4-5.0); Bilirubin Total 0.6 mg/dL (0.2-1.0); Potassium 4.1 mmol/L (3.5-5.1); Protein, Total 7.6 g/dL (6.4-8.2)
--- NOTE | 2021-06-20 06:17 | P.PN ---
Subjective Date of Service: 06/20/21 Primary Care Provider: OphthalmologyDr. Leyva Chief Complaint: Conjunctivitis Subjective: Improving Physical Examination - Vital Signs Temperature: 98 F Blood Pressure: 119/60 Pulse: 62 Respirations: 18 Pulse Ox (%): 62 Assessment & Plan Discharge Plan: Home Physician Review Additional Text: COVID: Negative Physical exam: General: Patient alert, cooperative. HEENT: Right eyelid edema improved. No significant erythema. Erythema noted to the conjunctiva. Mild exudate noted. Neck: Supple, 2+ carotid pulse no bruit, No LAD Respiratory: Clear to auscultation bilaterally, Normal air movement Cardiovascular: Appears regular Gastrointestinal: Normal bowel sounds, No tenderness Musculoskeletal: No tenderness Integumentary: No rashes Neurological: Normal gait, Normal speech, Normal strength at 5/5 x4 extr, Normal tone, Normal affect Lymphatics: No axilla or inguinal lymphadenopathy Impression: Severe conjunctivitis of the right eye with periorbital swelling, corneal lesion likely abrasion/ulcer Plan: Patient has significantly improved. No significant erythema to the orbital region. No evidence of cellulitis. Case discussed in detail with patient, Dr. Leyva and physician registered medical assistant present at bedside. Severe gonococcal infection has been ruled out as recommended by Dr. Leyva. No need for further IV or oral antibiotic therapy at this time. Dr. Leyva recommends discharge at this time. He further recommends that the patient follow-up in his office for slit-lamp e valuation later today. No slit lamp available at the hospital. Dr. Leyva further recommend that the patient continue with current compounded eye antibiotic solution as directed. Patient will also continue with other eye antibiotic solution. Further recommendation is the patient to follow-up with Dr. Leyva on a daily basis to continue monitoring as an outpatient. This was addressed in detail with Dr. Leyva present. Transportation and his current financial situation was addressed in detail. Patient plans to get some support from his family for transportation. He will try to work with Dr. Leyva for a financial plan to continue follow-up as an outpatient. Patient plans to follow- up with Dr. Leyva and continue with recommendations as stated by Dr. Leyva. Patient will be discharged home. CODE STATUS: Full code DVT prophylaxis: Lovenox Advance care planning: Home at discharge Time Spent Managing Pts Care (In Minutes): 55
[2021-06-20] MEDS: HYDROCODONE/APAP 7.5/325 MG TAB PO PRN (06:45)
[2021-06-20] MEDS: DOXYCYCLINE 100 MG CAP PO SCH (08:44)
[2021-06-20] MEDS: ENOXAPARIN 40 MG/0.4 ML SQ SCH (08:44)
[2021-06-20] MEDS ORDERED: CEFTRIAXONE/SWI 2gm 2 GM/20 ML SYR IV SCH (09:00)
[2021-06-20] MEDS: GENTAMICIN OPTH SCH ×5 (09:15→13:15)
--- NOTE | 2021-06-20 10:21 | P.DS ---
Admission Date: 06/18/21 Discharge Date: 06/20/21 Primary Care Provider: OphthalmologyDr. Leyva Disposition: ROUTINE DISCHARGE Discharge Condition: GOOD Reason for Admission: Conjunctivitis Consultations: OphthalmologyDr. Leyva Infectious disease-Dr. Viera Procedures: COVID: Negative Medical problem list Severe conjunctivitis of the right eye with periorbital swelling, corneal lesion likely abrasion/ulcer Brief History of Present Illness: 31-year-old male presented to the ER for right eye pain. He had been seen in the ER and sent out with evaluation by ophthalmology. The patient was then admitted due to the possibility of severe gonococcal conjunctivitis. Patient uses contact lens. He does not regularly take them out. Patient had light sensitivity and eye pain. Patient admitted for ophthalmology evaluation and treatment. Hospital Course: Patient presented with severe conjunctivitis of the right eye with periorbital swelling, corneal lesion likely abrasion and ulcer. The patient had been seen by ophthalmology as an outpatient. The patient was admitted for antibiotic treatment and further evaluation. There was some suspicion early on for gonococcal infection. This was ruled out. Infectious disease was consulted. In the course of his stay patient received IV antibiotic therapy along with oral antibiotics. The patient continued with eyewashes and eye solutionantibiotic. His condition improved. No evidence of cellulitis was noted. At discharge significant edema improved to the periorbital region. Patient still with erythema to the conjunctiva. Case discussed in detail with Dr. Janet ko and patient on plan of care. Ophthalmology recommends to discharge patient as no further requirement of IV or oral antibiotic therapy is required. Plus patient will require close follow-up with ophthalmology with slit lamp evaluation which the hospital does not have. At discharge the patient will follow up with ophthalmology later today as an outpatient for slit-lamp evaluation. Patient will continue with moxifloxacin eyedrops and fortified gentamicin eyedrops to the right eye every hour. The patient will continue with this regimen until it is modified by ophthalmology as an outpatient. Patient will need to be seen on a regular basisdaily by ophthalmology. Arrangements for follow-up have been arranged. The importance of follow-up and treatment for his condition was thoroughly addressed with the patient. He understands that if his condition worsens or he requires further evaluation the patient would likely require ER evaluation where ophthalmology is readily available. This can be further managed by ophthalmology. No further use of contact lens at this time. Importance of handwashing will be provided. Education on conjunctivitis, corneal abrasion will be provided. Vital Signs/Physical Exam: Temp Pulse Resp BP Pulse Ox 98 F 62 18 119/60 62 L 06/20/21 10:19 06/20/21 10:19 06/20/21 10:19 06/20/21 10:19 06/20/21 10:19 General: Alert, In no apparent distress, Cooperative HEENT: Other (Edema to the eyelid significantly improved. No significant erythema to the eyelid. Erythema to the conjunctiva noted. Corneal abrasion/ulcer noted.) Neck: Supple Respiratory: Clear to auscultation bilaterally Cardiovascular: Normal pulses, Regular rate/rhythm Gastrointestinal: Normal bowel sounds Musculoskeletal: No erythema, No tenderness, No warmth Integumentary: No erythema, No warmth, No cyanosis Neurological: Normal speech, Normal strength at 5/5 x4 extr, Normal tone Laboratory Data at Discharge: WBC 8.80 K/uL (4.3-10.9) D 06/20/21 05:39 Hgb 17.1 g/dL (13.6-17.9) 06/20/21 05:39 Hct 49.4 % (39.6-49.0) H 06/20/21 05:39 Plt Count 270 K/uL (152-406) 06/20/21 05:39 Sodium 139 mmol/L (136-145) 06/20/21 05:39 Potassium 4.1 mmol/L (3.5-5.1) 06/20/21 05:39 BUN 13 mg/dL (7-18) 06/20/21 05:39 Creatinine 1.13 mg/dL (0.55-1.3) 06/20/21 05:39 Glucose 90 mg/dL (74-106) 06/20/21 05:39 Total Bilirubin 0.6 mg/dL (0.2-1.0) 06/20/21 05:39 AST 12 U/L (15-37) L 06/20/21 05:39 ALT 18 U/L (12-78) 06/20/21 05:39 Alkaline Phosphatase 67 U/L (45-117) 06/20/21 05:39 Home Medications: NK [No Home Meds] 06/20/21 Physician Discharge Instructions: Patient presented with severe conjunctivitis of the right eye with periorbital swelling, corneal lesion likely abrasion and ulcer. The patient had been seen by ophthalmology as an outpatient. The patient was admitted for antibiotic treatment and further evaluation. There was some suspicion early on for gonococcal infection. This was ruled out. Infectious disease was consulted. In the course of his stay patient received IV antibiotic therapy along with oral antibiotics. The patient continued with eyewashes and eye solutionantibiotic. His condition improved. No evidence of cellulitis was noted. At discharge significant edema improved to the periorbital region. Patient still with erythema to the conjunctiva. Case discussed in detail with Dr. Cheemaphthalmology and patient on plan of care. Ophthalmology recommends to discharge patient as no further requirement of IV or oral antibiotic therapy is required. Plus patient will require close follow-up with ophthalmology with slit lamp evaluation which the hospital does not have. At discharge the patient will follow up with ophthalmology later today as an outpatient for slit-lamp evaluation. Patient will continue with moxifloxacin eyedrops and fortified gentamicin eyedrops to the right eye every hour. The patient will continue with this regimen until it is modified by ophthalmology as an outpatient. Patient will need to be seen on a regular basisdaily by ophthalmology. Arrangements for follow-up have been arranged. The importance of follow-up and treatment for his condition was thoroughly addressed with the patient. He understands that if his condition worsens or he requires further evaluation the patient would likely require ER evaluation where ophthalmology is readily available. This can be further managed by ophthalmology. No further use of contact lens at this time. Importance of handwashing will be provided. Education on conjunctivitis, corn eal abrasion will be provided. Diet: Regular Activity: Ad ernie Followup: Bryson Leyva MD [Primary Care Provider] - Time spent managing pt's care (in minutes): 55
--- NOTE | 2021-06-20 10:38 | P.PN ---
Subjective Date of Service: 06/20/21 Primary Care Provider: OphthalmologyDr. Leyva Chief Complaint: Conjunctivitis Patient seen examined at bedside, syphilis, gonorrhea negative. Swelling improving, patient still complains of significant pain. Patient afebrile. No leukocytosis noted on labs. Review of Systems 10-point ROS is otherwise unremarkable Physical Examination - Vital Signs Temperature: 98 F Blood Pressure: 119/60 Pulse: 62 Respirations: 18 Pulse Ox (%): 62 - Studies Laboratory Last Values WBC 13.80 K/uL (4.3-10.9) H 06/18/21 18:45 RBC 5.42 M/uL (4.33-5.43) 06/18/21 18:45 Hgb 16.2 g/dL (13.6-17.9) 06/18/21 18:45 Hct 47.5 % (39.6-49.0) 06/18/21 18:45 MCV 87.7 fL (80-100) 06/18/21 18:45 MCH 29.9 pg (27.0-35.0) 06/18/21 18:45 MCHC 34.1 g/dL (32.0-36.0) 06/18/21 18:45 RDW 12.8 % (12.1-15.2) 06/18/21 18:45 Plt Count 238 K/uL (152-406) 06/18/21 18:45 MPV 8.8 fL (7.6-11.3) 06/18/21 18:45 Neutrophils % 80.8 % (41.7-73.7) H 06/18/21 18:45 Lymphocytes % 11.5 % (15.3-44.8) L 06/18/21 18:45 Monocytes % 7.2 % (3.3-12.3) 06/18/21 18:45 Eosinophils % 0.1 % (0-4.4) 06/18/21 18:45 Basophils % 0.4 % (0-1.3) 06/18/21 18:45 Absolute Neutrophils 11.1 K/uL (1.8-8.0) H 06/18/21 18:45 Absolute Lymphocytes 1.6 K/uL (0.7-4.9) 06/18/21 18:45 Absolute Monocytes 1.0 K/uL (0.1-1.3) 06/18/21 18:45 Absolute Eosinophils 0.0 K/uL (0-0.5) 06/18/21 18:45 Absolute Basophils 0.1 K/uL (0-0.5) 06/18/21 18:45 Sodium 141 mmol/L (136-145) 06/18/21 18:45 Potassium 3.6 mmol/L (3.5-5.1) 06/18/21 18:45 Chloride 108 mmol/L (98-107) H 06/18/21 18:45 Carbon Dioxide 24 mmol/L (21-32) 06/18/21 18:45 BUN 9 mg/dL (7-18) 06/18/21 18:45 Creatinine 0.96 mg/dL (0.55-1.3) 06/18/21 18:45 Estimated GFR > 90 mL/min (=/>90) 06/18/21 18:45 Glucose 97 mg/dL (74-106) 06/18/21 18:45 Calcium 9.3 mg/dL (8.5-10.1) 06/18/21 18:45 Total Bilirubin 0.5 mg/dL (0.2-1.0) 06/18/21 18:45 AST 15 U/L (15-37) 06/18/21 18:45 ALT 18 U/L (12-78) 06/18/21 18:45 Alkaline Phosphatase 64 U/L (45-117) 06/18/21 18:45 Serum Total Protein 7.2 g/dL (6.4-8.2) 06/18/21 18:45 Albumin 4.1 g/dL (3.4-5.0) 06/18/21 18:45 Globulin 3.1 g/dL (2.3-3.5) 06/18/21 18:45 Albumin/Globulin Ratio 1.3 (1.1-1.8) 06/18/21 18:45 Urine Color Cancelled 06/18/21 17:59 Urine Appearance Cancelled 06/18/21 17:59 Urine pH Cancelled 06/18/21 17:59 Ur Specific [place] Cancelled 06/18/21 17:59 Glucose (UA)(Auto) Cancelled 06/18/21 17:59 Urine Ketones Cancelled 06/18/21 17:59 Urine Blood Cancelled 06/18/21 17:59 Urine Nitrite Cancelled 06/18/21 17:59 Urine Bilirubin Cancelled 06/18/21 17:59 Urine Urobilinogen Cancelled 06/18/21 17:59 Ur Leukocyte Esterase Cancelled 06/18/21 17:59 Ur Microscopic Review Cancelled 06/18/21 17:59 Urine Total Protein Cancelled 06/18/21 17:59 SARS-CoV-2 Rap RNA(RT-PCR) Negative (NEGATIVE) 06/18/21 21:00 Assessment And Plan - Plan Physical Exam: General: Alert, In no apparent distress, Oriented x3 HEENT: Other (Normal on exam and left behind, unable to perform I examined right benign due to severe pain, light sensitivity, and extreme swelling. Patient has purulent drainage from right time with conjunctival erythema) Neck: Supple, 2+ carotid pulse no bruit Respiratory: Clear to auscultation bilaterally, Normal air movement Cardiovascular: No edema, Normal pulses Capillary refill: <2 Seconds Gastrointestinal: Normal bowel sounds, Soft and benign Musculoskeletal: No clubbing, No swelling Integumentary: No rashes, No breakdown, No significant lesion Laboratory Data (last 24 hrs) 06/18/21 18:45: Sodium 141, Potassium 3.6, BUN 9, Creatinine 0.96, Glucose 97, Total Bilirubin 0.5, AST 15, ALT 18, Alkaline Phosphatase 64 06/18/21 18:45: WBC 13.80 H, Hgb 16.2, Hct 47.5, Plt Count 238 Conclusions/Impression: Antibiotics: Rocephin Start: 06/19 Stop:06/20 Doxycycline Start: 06/19 stop: 06/20 Assessment/Plan Bacterial conjunctivitis Gonorrhea, chlamydia, syphilis labs negative. 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 Systemic antibiotics discontinued. Eye drops per Ophthalmology recommendations. Patient is a contact lens wear, Pseudomonas coverage needed. Medical management per primary team Plan of care discussed Dr. Viera Thank you for consultation.
[2021-06-20 13:41] VITALS: BP 133/83; TEMP 98.8
== END 2021-06-20 14:10 | disposition home or self-care (01) | DRG 125 ==
LOC: ER 14:31 → ERHOLD 23:29 → 2ND 06-19 00:27
PROVIDERS: ADMIT Family Medicine; ATTEND Family Medicine
DX: H10.9 Unspecified conjunctivitis (principal); S05.01XA Injury of conjunctiva and corneal abrasion without foreign body, right eye, initial encounter; H16.001 Unspecified corneal ulcer, right eye; R03.0 Elevated blood-pressure reading, without diagnosis of hypertension; Z20.822 Contact with and (suspected) exposure to COVID-19
CPT/HCPCS: 36415; 80053; 81003; 85025; 86592; 87490; 87590; 96365; 96366; 96375; 99283; J0696; J1650; J2270; J2405; J7030; U0003